=== PATIENT | male | born 1990 | race Caucasian/White ===

== ENCOUNTER 2016-11-15 10:48 | Outpatient (CLI) | payer MEDICAID ==
[2016-11-15 12:01] LABS: MONO NEGATIVE CONTROL ZONE White (Negative) (White); MONO POSITIVE CONTROL Pink Line (Positive) (PINK/RED); Mononucleosis NEGATIVE (NEGATIVE)
== END 2016-11-15 10:49 | disposition home or self-care (01) ==
LOC: MADLABBHPM 10:48
PROVIDERS: ATTEND Family Medicine
DX: J02.9 Acute pharyngitis, unspecified (principal)
CPT/HCPCS: 36415; 86308

== ENCOUNTER 2022-02-28 14:57 | Emergency (ER) | payer MEDICAID ==
[2022-02-28] MEDS ORDERED: Ibuprofen 800 MG TAB ONE (15:27)
== END 2022-02-28 17:15 | disposition home or self-care (01) ==
LOC: MADERS 14:57
DX: B34.9 Viral infection, unspecified (principal); Z20.822 Contact with and (suspected) exposure to COVID-19; K21.9 Gastro-esophageal reflux disease without esophagitis; J45.909 Unspecified asthma, uncomplicated; Z79.899 Other long term (current) drug therapy
CPT/HCPCS: 87804; 99283; U0003; U0005

== ENCOUNTER 2023-10-05 15:17 | Emergency (ER) | payer MEDICAID ==
[2023-10-05 17:05] LABS: #Basophils 0.1 thou/uL (0.0-0.2); #Eosinphils 0.2 thou/uL (0.0-0.7); #Lymphocytes 1.3 thou/uL (1.20-3.40); #Monocytes 0.5 thou/uL (0.11-0.59); #Neutrophils 3.8 thou/uL (1.40-6.50); %Basophils 1.9 % (0.0-1.0); %Eosinophils 3.9 % (0.0-10.0); %Lymphocytes 21.8 % (21.0-51.0); %Monocytes 8.7 % (0.0-10.0); %Neutrophils 63.8 % (42.0-75.0); Hemoglobin 14.8 g/dL (14.0-18.0); Mean Corpuscular HGB CONC 30.9 g/dL (32.0-36.0); Mean Corpuscular Hemoglobin 27.2 pg (27.0-31.0); Mean Corpuscular Volume 88.1 fl (78.0-98.0); Mean Platelet Volume 6.8 fL (7.4-10.4); Platelet Count 215 10x3/uL (130-400); Red Blood Cell (RBC) Count 5.45 mill/uL (4.70-6.10)
[2023-10-05 17:23] LABS: ALT (SGPT) 45 U/L (8-55); AST (SGOT) 34 U/L (5-34); Albumin 4.4 g/dL (3.5-5.0); Alkaline Phosphatase 70 U/L (40-110); Anion Gap 16 mmol/L (10-20); BUN (Urea Nitrogen) 11 mg/dL (8.9-20.6); Bilirubin, Total 0.4 mg/dL (0.2-1.2); Calc. Creatinine Clearance 0 mL/min (70-130); Calcium 9.2 mg/dL (7.8-10.44); Carbon Dioxide 22 mmol/L (22-29); Chloride 106 mmol/L (98-107); Estimated GFR 108; Glucose 125 mg/dL (70-105); Potassium 4.1 mmol/L (3.5-5.1); Protein, Total 7.4 g/dL (6.0-8.3); Sodium 140 mmol/L (136-145)
[2023-10-05] MEDS ORDERED: Doxycycline 100 MG CAP ONE (17:27)
[2023-10-05] MEDS ORDERED: predniSONE 20 MG TAB ONE (17:28)
== END 2023-10-05 17:43 | disposition home or self-care (01) ==
LOC: MADERS 15:17
DX: J22 Unspecified acute lower respiratory infection (principal)
CPT/HCPCS: 36415; 71045; 80053; 83605; 85025; J7512

== ENCOUNTER 2024-03-02 14:27 | Emergency (ER) | payer MEDICAID ==
[2024-03-02] MEDS ORDERED: Ketorolac Tromethamine 30 MG (1 mL) VIAL ONE (14:42)
[2024-03-02] MEDS ORDERED: Sodium Chloride 0.9% 1,000 ML ONE (14:43)
[2024-03-02 14:49] LABS: Bilirubin Negative (Negative); Blood, Urine Negative (Negative); Clarity Clear (Clear); Glucose, Urine (Dipstick) Negative (Negative); Ketone, Urine Negative (Negative); Leukocyte Negative (Negative); Nitrite Negative (Negative); Protein, Urine (Dipstick) Negative (Neg-Trace); Urobilinogen 0.2 mg/dL (Less than 2); pH, Urine 5.5 (5.0-9.0)
[2024-03-02 14:51] LABS: Specific Gravity, Urine 1.025 (1.002-1.036)
[2024-03-02 15:07] LABS: Bacteria/HPF Rare-Few HPF (None Seen); CAUTI Indications for Culture Pelvic or flank pain; RBC/HPF 0-3 HPF (0-3); Squamous Epithelial 0-3 HPF (0-3); WBC/HPF None Seen HPF (0-3)
[2024-03-02 15:08] LABS: Urine Culture Reflex No No
[2024-03-02 15:25] LABS: #Basophils 0.1 thou/uL (0.0-0.2); #Eosinophils 0.2 thou/uL (0.0-0.7); #Lymphocytes 1.5 thou/uL (1.20-3.40); #Monocytes 0.5 thou/uL (0.11-0.59); #Neutrophils 2.8 thou/uL (1.40-6.50); %Basophils 2.1 % (0.0-1.0); %Eosinophils 3.2 % (0.0-10.0); %Lymphocytes 29.2 % (21.0-51.0); %Monocytes 9.4 % (0.0-10.0); %Neutrophils 56.1 % (42.0-75.0); Hematocrit 45.3 % (42.0-52.0); Hemoglobin 14.4 g/dL (14.0-18.0); Mean Corpuscular HGB CONC 31.9 g/dL (32.0-36.0); Mean Corpuscular Hemoglobin 27.4 pg (27.0-31.0); Mean Corpuscular Volume 86.1 fl (78.0-98.0); Mean Platelet Volume 7.5 fL (7.4-10.4); Platelet Count 243 10x3/uL (130-400); RBC Distribution Width 11.5 % (11.5-14.5); Red Blood Cell (RBC) Count 5.27 mill/uL (4.70-6.10); White Blood Cell (WBC) Count 5.1 10x3/uL (4.8-10.8)
[2024-03-02] MEDS ORDERED: Lidocaine 4% Patch ONE (15:29)
[2024-03-02 15:41] LABS: ALT (SGPT) 43 U/L (8-55); AST (SGOT) 31 U/L (5-34); Albumin 4.2 g/dL (3.5-5.0); Alkaline Phosphatase 63 U/L (40-110); Anion Gap 15 mmol/L (10-20); BUN (Urea Nitrogen) 11 mg/dL (8.9-20.6); Bilirubin, Total 0.5 mg/dL (0.2-1.2); Calc. Creatinine Clearance 0 mL/min (70-130); Calcium 9.8 mg/dL (7.8-10.44); Carbon Dioxide 20 mmol/L (22-29); Chloride 107 mmol/L (98-107); Estimated GFR 110; Globulin 2.8 g/dL (2.4-3.5); Glucose 112 mg/dL (70-105); Potassium 4.4 mmol/L (3.5-5.1); Sodium 138 mmol/L (136-145)
== END 2024-03-02 16:05 | disposition home or self-care (01) ==
LOC: MADERS 14:27
DX: M54.6 Pain in thoracic spine (principal); R10.9 Unspecified abdominal pain; J45.909 Unspecified asthma, uncomplicated; Z79.51 Long term (current) use of inhaled steroids; Z79.899 Other long term (current) drug therapy
CPT/HCPCS: 36415; 74176; 80053; 81001; 85025; 96374; J1885; J7030